=== PATIENT | female | born 1970 | race Caucasian/White ===

== ENCOUNTER → 2020-02-29 12:28 | Outpatient (BNVA) | payer OTHER, SELFPAY | PROVIDERS: Family Provider Nurse Practitioner Family; PCP Nurse Practitioner Family; Visit Provider Nurse Practitioner Family | DX: F32.9 Major depressive disorder, single episode, unspecified (principal); F41.9 Anxiety disorder, unspecified; Z79.899 Other long term (current) drug therapy; E55.9 Vitamin D deficiency, unspecified | CPT/HCPCS: 80053; 80061; 82306; 83036; 84443; 85025 ==

== ENCOUNTER → 2020-12-27 11:13 | Outpatient (BNVA) | payer OTHER, SELFPAY | PROVIDERS: Family Provider Nurse Practitioner Family; PCP Nurse Practitioner Family; Visit Provider Internal Medicine | DX: Z01.812 Encounter for preprocedural laboratory examination (principal); Z12.11 Encounter for screening for malignant neoplasm of colon; Z20.822 Contact with and (suspected) exposure to COVID-19 | CPT/HCPCS: 87635 ==

== ENCOUNTER 2020-12-30 08:39 | Day surgery (SDC) | payer OTHER, SELFPAY ==
[2020-12-28 12:33] VITALS: BMI 34.4
--- NOTE | 2020-12-30 09:09 | ANES.PREANE2 ---
Pre-Anesthetic Assessment Pre-Anesthetic Assessment: Height/Weight: Height 1.7 m Weight 99.79 kg Preop Diagnosis: screen Proposed Procedure: Operation Date: 12/30/20 10:00 Proposed Procedures p Colonoscopy g0121 z12.11(Not Applicable) - Liu Molina MD Familial anesthetic complications: ponv after tubal Was Beta Urszula taken within 24 hours: N/A Was Clonidine taken within 24 hours: N/A Last Intake: 18:00 Social: Social History: Alcohol (occ) and No tobacco Exam: Pre-Anes Outpt Exam: alert and oriented x 3 Airway: Submandibular: WNL Cervical ROM: WNL MP: 1 History/ROS: No significant history except as noted Pulmonary: Pulmonary: None reported CV/HEM: CV/HEM: None reported : : None reported Hepatic: Hepatic: None reported GI: GI: GERD (occasional) Metabolic: Metabolic: Morbid obesity Musc/skel: Musc/skel: None reported Neuropsych: Neuropsych: None reported Anesthetic Plan: ASA status: 2 Anesthesia: Anesthesia Evaluation and MAC Risk of > 500 ml blood loss (7ml/kg in children): No PFSH Anesthesia PFSH: Medical History Anxiety and depression Colon cancer screening Otitis media Sinusitis Vitamin D deficiency Surgical History S/P laparoscopic hysterectomy 2011 - [place] Ovaries remain - done for endometriosis Social History Smoking and tobacco status: never smoked Second hand smoke exposure: No Smoking risk assessment/counseling performed?: No Alcohol intake: never Desire information about alcohol rehabilitation?: No Counseling given: No Data Anesthesia Cardiac Studies: No Data to Display
--- NOTE | 2020-12-30 09:16 | W.PM.OPSFHP ---
Same Day Surgery H&P Indication for Procedure/HPI DATE OF PROCEDURE: December 30, 2020 CHIEF COMPLAINT/INDICATIONFOR SURGICAL PROCEDURE: Screening colonoscopy PREOP DIAGNOSIS: screen PLANNED PROCEDRUE: Operation Date: 12/30/20 10:00 Proposed Procedures p Colonoscopy g0121 z12.11(Not Applicable) - Liu Molina MD Medications/Allergies* Allergies/Adverse Reactions Allergy/AdvReac Type Severity Reaction Status Date / Time No Known Allergies Allergy Verified 12/15/20 13:01 Pertinent History/Comorbid Conditions* Medical History (Updated 11/06/20 @ 22:06 by MILES Espinoza) Anxiety and depression Colon cancer screening Otitis media Sinusitis Vitamin D deficiency Surgical History (Updated 03/16/20 @ 09:09 by MILES Espinoza) S/P laparoscopic hysterectomy 2011 - [place] Ovaries remain - done for endometriosis Social History Smoking and tobacco status: never smoked Second hand smoke exposure: No Smoking risk assessment/counseling performed?: No Alcohol intake: never Desire information about alcohol rehabilitation?: No Counseling given: No Pertinent Exam Findings alert, oriented x 3, clear to auscultation bilaterally, regular rate & rhythm, operative site marked and procedure specific exam findings Recommendations Surgery/Procedure today Coding Level of Care Code Acute Client Relationship Executive for Fantasma Mcdonald
[2020-12-30 09:34] VITALS: BP 133/70; PULSE 73; RESP 18; TEMP 36.3; O2SAT 97
[2020-12-30] MEDS: sodium chloride 0.9% 1,000 ML 30 ML IV (09:39)
[2020-12-30 10:25] VITALS: BP 108/55; PULSE 68; RESP 16; TEMP 36.3; O2SAT 97
[2020-12-30 10:51] VITALS: BP 121/71; PULSE 63; RESP 16; O2SAT 100
--- NOTE | 2020-12-30 16:27 | ANE.PACU2 ---
Inpatient post-anesthesia follow up: Airway intact: Yes Vital signs: Temperature 97.3 F Pulse Rate 63 Respiratory Rate 16 Blood Pressure 121/71 Pulse Oximetry 100 Oxygen Delivery Me thod Room Air Oxygen Flow Rate Fraction of Inspir ed Oxygen Hydration adequate: Yes Nausea and vomiting: No Pain level: 1 Mental status: Baseline
== END 2020-12-30 11:00 | disposition home or self-care (01) ==
PROVIDERS: Family Provider Nurse Practitioner Family; PCP Nurse Practitioner Family; Visit Provider Internal Medicine
PROC: 0DJD8ZZ Inspection of Lower Intestinal Tract, Via Natural or Artificial Opening Endoscopic (ICD-10-PCS; CPT 45378; principal; 2020-12-30 10:00)
DX: Z12.11 Encounter for screening for malignant neoplasm of colon (principal); F41.9 Anxiety disorder, unspecified; F32.9 Major depressive disorder, single episode, unspecified; E55.9 Vitamin D deficiency, unspecified; E66.01 Morbid (severe) obesity due to excess calories; Z68.34 Body mass index [BMI] 34.0-34.9, adult
CPT/HCPCS: 45378; 96360; J2704; J7030

== ENCOUNTER → 2021-03-17 09:45 | Outpatient (BNVA) | payer OTHER, SELFPAY | PROVIDERS: Family Provider Nurse Practitioner Family; PCP Nurse Practitioner Family; Visit Provider Nurse Practitioner Family | DX: J01.90 Acute sinusitis, unspecified (principal); B96.89 Other specified bacterial agents as the cause of diseases classified elsewhere; R41.3 Other amnesia; R51.9 Headache, unspecified; E55.9 Vitamin D deficiency, unspecified; Z79.899 Other long term (current) drug therapy; Z13.6 Encounter for screening for cardiovascular disorders; Z82.49 Family history of ischemic heart disease and other diseases of the circulatory system | CPT/HCPCS: 80053; 80061; 81003; 82306; 82607; 82746; 83036; 83550; 84439; 84443; 85025 ==

== ENCOUNTER → 2021-08-28 09:07 | Outpatient (BNVA) | payer OTHER, SELFPAY | PROVIDERS: PCP Nurse Practitioner Family; Visit Provider Nurse Practitioner Family | DX: M70.32 Other bursitis of elbow, left elbow (principal) | CPT/HCPCS: 73080 ==

== ENCOUNTER → 2021-11-08 11:02 | Outpatient (BNVA) | payer OTHER, SELFPAY | PROVIDERS: PCP Nurse Practitioner; Visit Provider Nurse Practitioner | DX: Z79.899 Other long term (current) drug therapy (principal) | CPT/HCPCS: 87070 ==

== ENCOUNTER → 2025-05-12 11:07 | Outpatient (BNVA) | payer OTHER, SELFPAY | PROVIDERS: PCP Nurse Practitioner Family; Visit Provider Nurse Practitioner Family | DX: R25.2 Cramp and spasm (principal) | CPT/HCPCS: 80053; 85025 ==